=== PATIENT | female | born 1955 | race Caucasian/White ===

== ENCOUNTER 2018-03-08 19:20 | Emergency (ER) | payer BC ==
[~2018-03-08] VITALS: Ht 167.6 cm; Wt 102.7 kg
[~2018-03-08 19:20] MED LIST: LEVO125T PO
[2018-03-08 19:43] LABS: BASOPHILS # (AUTO) 0.1 X10'3 (0-0.2); BASOPHILS % (AUTO) 0.8 % (0-1); EOSINOPHILS # (AUTO) 0.2 X10'3 (0-0.9); HEMATOCRIT 41.3 % (35.0-45.0); LYMPHOCYTES # (AUTO) 1.9 X10'3 (1.1-4.8); LYMPHOCYTES % (AUTO) 22.5 % (21-51); MEAN CORPUSCULAR HEMOGLOBIN 29.9 PG (27.0-31.0); MEAN CORPUSCULAR HGB CONC 33.9 % (33.0-36.5); MEAN CORPUSCULAR VOLUME 88.3 FL (78-98); MEAN PLATELET VOLUME 8.2 FL (7.4-10.4); MONOCYTES # (AUTO) 0.5 X10'3 (0-0.9); MONOCYTES % (AUTO) 5.4 % (2-12); NEUTROPHILS # (AUTO) 5.9 X10'3 (1.8-7.7); NEUTROPHILS % (AUTO) 69.3 % (42-75); PLATELET COUNT 192 X10'3 (140-440); RED BLOOD COUNT 4.67 X10'6 (4.20-5.60); RED CELL DISTRIBUTION WIDTH 14.7 % (11.5-14.5); WHITE BLOOD COUNT 8.5 X10'3 (4.5-11.0)
[2018-03-08 19:54] LABS: INR 0.9 INR; PARTIAL THROMBOPLASTIN TIME 25 SECONDS (22-32); PROTHROMBIN TIME 9.8 SECONDS (9.0-12.0)
[2018-03-08 19:58] LABS: ALANINE AMINOTRANSFERASE 22 U/L (12-78); ALBUMIN 3.7 G/DL (3.4-5.0); ALKALINE PHOSPHATASE 119 IU/L (46-116); ANION GAP 8 (8-16); ASPARTATE AMINO TRANSFERASE 15 U/L (10-37); BILIRUBIN,TOTAL 0.3 MG/DL (0.1-1.0); BLOOD UREA NITROGEN 11 MG/DL (7-18); BUN/CREATININE RATIO 13.8 (6.6-38.0); CALCIUM 8.9 MG/DL (8.5-10.1); CHLORIDE 104 MMOL/L (99-107); GLUCOSE 142 MG/DL (70-104); SODIUM 141 MMOL/L (135-145); TOTAL CARBON DIOXIDE 28.7 MMOL/L (24-32); TOTAL PROTEIN 7.4 G/DL (6.4-8.2); eGFR 73 ML/MIN
[2018-03-08] MEDS ORDERED: DEXL60CA3 PO (21:25)
[2018-03-08] MEDS ORDERED: mag hydrox/Alum hydrox/simeth 30ml oral suspension PO ONE (21:25)
[2018-03-08] MEDS ORDERED: LIDOcaine Viscous 15ml cup PO ONE (21:25)
[2018-03-08 21:36] VITALS: BP 123/77
== END 2018-03-08 21:38 | disposition home or self-care (01) ==
LOC: ER 19:20
DX: R07.9 Chest pain, unspecified (principal); R42 Dizziness and giddiness; R53.1 Weakness; E78.00 Pure hypercholesterolemia, unspecified; K21.9 Gastro-esophageal reflux disease without esophagitis; E11.9 Type 2 diabetes mellitus without complications; Z90.49 Acquired absence of other specified parts of digestive tract; Z85.3 Personal history of malignant neoplasm of breast; Z79.899 Other long term (current) drug therapy
CPT/HCPCS: 36415; 71045; 80053; 84484; 85025; 85610; 85730; 93005; 99285

== ENCOUNTER 2018-09-03 12:39 | Emergency (ER) | payer BC ==
[~2018-09-03] VITALS: Ht 167.6 cm; Wt 87.7 kg
[~2018-09-03 12:39] MED LIST changes: +DEXL60CA3 PO
[2018-09-03 13:06] LABS: BASOPHILS % (AUTO) 0.5 % (0-1); EOSINOPHILS # (AUTO) 0.2 X10'3 (0-0.9); EOSINOPHILS % (AUTO) 2.6 % (0-6); HEMATOCRIT 44.4 % (35.0-45.0); HEMOGLOBIN 14.5 g/dl (12.0-16.0); LYMPHOCYTES # (AUTO) 1.5 X10'3 (1.1-4.8); LYMPHOCYTES % (AUTO) 21.6 % (21-51); MEAN CORPUSCULAR HEMOGLOBIN 28.9 PG (27.0-31.0); MEAN CORPUSCULAR HGB CONC 32.7 % (33.0-36.5); MEAN CORPUSCULAR VOLUME 88.3 FL (78-98); MEAN PLATELET VOLUME 8.6 FL (7.4-10.4); MONOCYTES # (AUTO) 0.4 X10'3 (0-0.9); MONOCYTES % (AUTO) 5.4 % (2-12); NEUTROPHILS # (AUTO) 4.9 X10'3 (1.8-7.7); NEUTROPHILS % (AUTO) 69.9 % (42-75); PLATELET COUNT 189 X10'3 (140-440); RED BLOOD COUNT 5.03 X10'6 (4.20-5.60); RED CELL DISTRIBUTION WIDTH 15.7 % (11.5-14.5); WHITE BLOOD COUNT 7.1 X10'3 (4.5-11.0)
[2018-09-03 13:27] LABS: PARTIAL THROMBOPLASTIN TIME 29 SECONDS (22-32); PROTHROMBIN TIME 9.9 SECONDS (9.0-12.0)
[2018-09-03 13:28] LABS: ALANINE AMINOTRANSFERASE 21 U/L (12-78); ALBUMIN 4.1 G/DL (3.4-5.0); ALBUMIN/GLOBULIN RATIO 1.1 (1.1-1.5); ALKALINE PHOSPHATASE 89 IU/L (46-116); ANION GAP 9 (8-16); ASPARTATE AMINO TRANSFERASE 14 U/L (10-37); BILIRUBIN,TOTAL 0.5 MG/DL (0.1-1.0); BLOOD UREA NITROGEN 8 MG/DL (7-18); BUN/CREATININE RATIO 12.1 (6.6-38.0); CALCIUM 9.9 MG/DL (8.5-10.1); CHLORIDE 103 MMOL/L (99-107); CREATININE 0.66 MG/DL (0.40-0.90); GLUCOSE 99 MG/DL (70-104); POTASSIUM 4.2 MMOL/L (3.5-5.1); SODIUM 139 MMOL/L (135-145); TOTAL CARBON DIOXIDE 27.4 MMOL/L (24-32); TOTAL PROTEIN 7.8 G/DL (6.4-8.2); eGFR > 90 ML/MIN
[2018-09-03] MEDS ORDERED: mag hydrox/Alum hydrox/simeth 30ml oral suspension PO ONE (13:45)
[2018-09-03] MEDS ORDERED: famotidine 20mg tablet PO ONE (13:45)
[2018-09-03 14:50] VITALS: BP 125/75
== END 2018-09-03 14:52 | disposition home or self-care (01) ==
LOC: ER 12:39
DX: R07.89 Other chest pain (principal); E78.00 Pure hypercholesterolemia, unspecified; K21.9 Gastro-esophageal reflux disease without esophagitis; E11.9 Type 2 diabetes mellitus without complications; Z90.49 Acquired absence of other specified parts of digestive tract; Z85.3 Personal history of malignant neoplasm of breast; Z79.899 Other long term (current) drug therapy
CPT/HCPCS: 36415; 71045; 80053; 84484; 85025; 85610; 85730; 93005; 99284

== ENCOUNTER 2019-09-26 06:23 | Observation (INO) | payer OTHER, SELFPAY ==
[~2019-09-26] VITALS: Ht 167.6 cm; Wt 101.8 kg
[2019-09-26] MEDS ORDERED: normal saline 1000ml 1,000 ML IV ONE (07:10)
[2019-09-26] MEDS ORDERED: mag hydrox/Alum hydrox/simeth 30ml oral suspension PO ONE (07:10)
[2019-09-26] MEDS ORDERED: famotidine 20mg tablet PO ONE (07:10)
[2019-09-26] MEDS ORDERED: aspirin 325mg tablet PO ONE (07:10)
[2019-09-26] MEDS ORDERED: iohexol 350MG/ML 100ml bottle IV ONE (07:29)
[2019-09-26] MEDS: nitroGLYCERIN 0.4mg SUBLingual tab SL PRN ×2 (07:33→13:48)
[2019-09-26 07:42] LABS: BASOPHILS % (AUTO) 0.3 % (0-1); EOSINOPHILS # (AUTO) 0.5 X10'3 (0-0.9); EOSINOPHILS % (AUTO) 5.2 % (0-6); HEMATOCRIT 44.8 % (35.0-45.0); HEMOGLOBIN 14.8 g/dl (12.0-16.0); LYMPHOCYTES # (AUTO) 1.6 X10'3 (1.1-4.8); LYMPHOCYTES % (AUTO) 17.2 % (21-51); MEAN CORPUSCULAR HEMOGLOBIN 29.8 PG (27.0-31.0); MEAN CORPUSCULAR VOLUME 90.2 FL (78-98); MEAN PLATELET VOLUME 8.1 FL (7.4-10.4); MONOCYTES # (AUTO) 0.4 X10'3 (0-0.9); MONOCYTES % (AUTO) 4.8 % (2-12); NEUTROPHILS # (AUTO) 6.6 X10'3 (1.8-7.7); NEUTROPHILS % (AUTO) 72.5 % (42-75); PLATELET COUNT 175 X10'3 (140-440); RED BLOOD COUNT 4.97 X10'6 (4.20-5.60); RED CELL DISTRIBUTION WIDTH 15.3 % (11.5-14.5); WHITE BLOOD COUNT 9.1 X10'3 (4.5-11.0)
[2019-09-26] MEDS ORDERED: famotidine 10mg tablet PO ONE (07:55)
[2019-09-26 08:14] LABS: CHLORIDE 105 MMOL/L (99-107); GLUCOSE 111 MG/DL (70-104); POTASSIUM 3.9 MMOL/L (3.5-5.1); SODIUM 139 MMOL/L (135-145); TOTAL CARBON DIOXIDE 25.6 MMOL/L (24-32)
[2019-09-26 08:15] LABS: ALANINE AMINOTRANSFERASE 40 U/L (12-78); ALKALINE PHOSPHATASE 109 IU/L (46-116); ANION GAP 8 (8-16); ASPARTATE AMINO TRANSFERASE 22 U/L (10-37); BILIRUBIN,TOTAL 0.5 MG/DL (0.1-1.0); BLOOD UREA NITROGEN 12 MG/DL (7-18); BUN/CREATININE RATIO 15.4 (6.6-38.0); CREATININE 0.78 MG/DL (0.40-0.90); eGFR 75 ML/MIN
[2019-09-26] MEDS ORDERED: mag hydrox/Alum hydrox/simeth 30ml oral suspension PO PRN (09:45)
[2019-09-26] MEDS ORDERED: morphine 2 MG/ML inj. syringe IV PRN ×2 (09:45)
[2019-09-26] MEDS ORDERED: magnesium hydroxide 30ml (MOM) UD suspension PO PRN (09:45)
[2019-09-26] MEDS ORDERED: acetaminophen 325mg tablet PO PRN (09:45)
[2019-09-26] MEDS ORDERED: ondansetron/PF 4mg/2ml inj IV PRN (09:45)
[2019-09-26] MEDS: normal saline 1000ml 1,000 ML IV SCH ×3 (09:59→20:57)
[2019-09-26 11:20] VITALS: BP 132/67
--- NOTE | 2019-09-26 11:20 | NUR ---
Patient arrived to PCU at 1118. Patient vital signs were obtained and skin check was performed. Patient was oriented to room and given call light. Will continue to monitor.
--- NOTE | 2019-09-26 12:49 | NUR ---
Lab staff asked if the 3hr troponin needed to be drawn at 1200, when the order was for 0957. and the 6hr order was 1357. Unclear why the 3hr was not done on time.
--- NOTE | 2019-09-26 13:57 | NUR ---
PAGER ID: [phone] MESSAGE: Peng [id number]. Pt having chest pain again, nitro given, stat EKG was done can I bring it to you to sign. Erica [phone]
[2019-09-26] MEDS ORDERED: regadenoson 0.4mg/5ml syringe IV PRN (14:45)
[2019-09-26] MEDS ORDERED: aminophylline 250mg/10ml inj. IV PRN (14:45)
[2019-09-26] MEDS ORDERED: metoprolol tartrate 1mg/ml inj IV PRN (14:45)
[2019-09-26] MEDS ORDERED: nitroGLYCERIN 0.4mg SUBLingual tab SL PRN (14:45)
--- NOTE | 2019-09-26 14:46 | NUR ---
Patient c/o chest pain, nitro given, EKG obtained and MD signed. No new orders, will continue to monitor.
[2019-09-26] MEDS ORDERED: SYN0.112T PO (17:17)
[2019-09-26] MEDS ORDERED: VITA-268 PO (17:22)
[2019-09-26] MEDS ORDERED: LIOT5TAB10 PO (17:22)
[2019-09-26] MEDS ORDERED: UBID100C16 PO (17:22)
[2019-09-26] MEDS ORDERED: RIBO1POW3 PO (17:23)
[2019-09-26] MEDS ORDERED: GLUC-87 PO (17:24)
[2019-09-26] MEDS ORDERED: ENZY1CAP5 PO (17:25)
[2019-09-26 18:00] VITALS: BP 141/78
--- NOTE | 2019-09-26 18:25 | NUR ---
Problems reprioritized. Patient report given, questions answered & plan of care reviewed with Blanca SHAFFER.
--- NOTE | 2019-09-26 18:30 | NUR ---
Patient in room [place] [address]. I have received report from DEENA Sanders, DEENA Weldon and had the opportunity to ask questions and assume patient care. Addendum: 09/26/19 at 1832 by Blanca Partida RN Patient in room [place] [address]. I have received report from DEENA Maldonado and had the opportunity to ask questions and assume patient care.
[2019-09-26] MEDS: carVEDilol 3.125mg tablet PO SCH (20:39)
[2019-09-26] MEDS: heparin, porcine 5000 units/ml vial SQ SCH (20:40)
[2019-09-26 22:47] VITALS: BP 121/59
[2019-09-27] VITALS (11 sets, daily range): BP systolic 12–158; BP diastolic 62–79
[2019-09-27] MEDS: normal saline 1000ml 1,000 ML IV SCH (05:44)
[2019-09-27] MEDS: nitroGLYCERIN 0.4mg SUBLingual tab SL PRN (05:48)
--- NOTE | 2019-09-27 06:19 | NUR ---
Problems reprioritized. Patient report given, questions answered & plan of care reviewed with DEENA Maldonado .
[2019-09-27] MEDS ORDERED: aspirin 81mg tablet.DR PO SCH (08:00)
--- NOTE | 2019-09-27 08:00 | NUR ---
Pt saline locked at this time per primary RN request for pt transfer to [facility].
[2019-09-27] MEDS ORDERED: LEVO75TA PO (10:27)
[2019-09-27] MEDS: carVEDilol 3.125mg tablet PO SCH (11:26)
[2019-09-27] MEDS: heparin, porcine 5000 units/ml vial SQ SCH (11:30)
[2019-09-27] MEDS ORDERED: OMEP40CA13 PO (11:50)
--- NOTE | 2019-09-27 13:01 | NUR ---
Patient was discharged home with at 1245. Patient reviewed discharge packet and instructions before signing. Patient Rx was faxed to [facility]. All belongings were sent with patient home. PIV was removed with cannula intact, Telemetry monitoring d/c'd, Patient wheeled down by staff. Patient left via private vehicle.
== END 2019-09-27 12:52 | disposition home or self-care (01) ==
LOC: ER 06:23 → ED HOLD 10:10 → EDBEDREQTM 10:36 → PCU 3S 11:18
PROVIDERS: ADMIT Family Medicine; ATTEND Family Medicine
DX: R07.89 Other chest pain (principal); I10 Essential (primary) hypertension; E78.5 Hyperlipidemia, unspecified; E03.9 Hypothyroidism, unspecified; E78.00 Pure hypercholesterolemia, unspecified; E11.9 Type 2 diabetes mellitus without complications; E05.00 Thyrotoxicosis with diffuse goiter without thyrotoxic crisis or storm; Z85.3 Personal history of malignant neoplasm of breast; Z90.89 Acquired absence of other organs; Z90.49 Acquired absence of other specified parts of digestive tract; Z92.21 Personal history of antineoplastic chemotherapy; Z92.3 Personal history of irradiation; Z79.899 Other long term (current) drug therapy
CPT/HCPCS: 36415; 71045; 78452; 80053; 84443; 84484; 85025; 87081; 93005; 93017; 96372; 99284; A9500; G0378; J1644; J2785; J7030; Q9967